=== PATIENT | male | born 1985 | race American Indian/Alaskan Native ===

== ENCOUNTER 2016-12-08 22:12 | Emergency (ER) | payer SELFPAY ==
[2016-12-09] MEDS ORDERED: PERCOCET 5/325 PO ONE (04:00)
--- NOTE | 2016-12-09 04:00 | Emergency Department Report ---
ED Rash HPI - HPI Chief Complaint: Skin Rash Stated Complaint: ABD PAIN/CYST Time Seen by Provider: 12/09/16 03:44 Duration: 3 Days Location: Back, Abdomen Suspected Cause: Unknown Rash Symptoms: Yes Itching, No Facial Swelling, No Tongue/Oral Swelling, No Breathing Difficulties, No Choking Sensation, No Wheezing/Dyspnea, No Peeling, No Blistering, No Fever, No Lightheaded, No Malaise, No Myalgias Severity: mild (3 out of 10) Other History: Patient here reports that he has skin rash to his left abdomen and left back area. Started 3 days ago. Denies any contact with anyone with similar rash. He reports that pain is 3 out of 10 in its burning but also reports throbbing and that it itches. Denies any history of similar rash. Denies any autoimmune disorder. Denies any fever or chills. Denies any respiratory symptoms. Tetanus vaccine is up-to-date. ED Review of Systems ROS: Stated complaint: ABD PAIN/CYST Other details as noted in HPI Comment: All other systems reviewed and negative Constitutional: denies: chills, fever Respiratory: no symptoms reported Cardiovascular: denies: chest pain, palpitations, edema, syncope Gastrointestinal: denies: nausea, vomiting Musculoskeletal: denies: back pain, arthralgia Skin: rash (painful rash), pruritus Neurological: denies: headache ED Past Medical Hx - Past Medical History Previous Medical History?: No - Surgical History Past Surgical History?: Yes Additional Surgical History: cyst removed from under arm 2015 - Family History Family history: no significant - Social History Smoking Status: Current Every Day Smoker Substance Use Type: Alcohol, Marijuana - Medications Home Medications: Home Medications Medication Instructions Recorded Confirmed Last Taken Type Acetaminophen/Codeine [Tylenol 1 tab PO Q6H PRN #12 tab 12/09/16 Unknown Rx /Codeine # 3 tab] Valacyclovir HCl [Valtrex] 1,000 mg PO TID #30 tablet 12/09/16 Unknown Rx Rash Exam - Exam General: Vital signs noted. No distress. Alert and acting appropriately. This is a 31-year-old male well-nourished well-developed in no acute distress. HEENT: No Periorbital Edema, No Conjuctival Injection, No Chemosis, No Perioral Edema, No Tongue Edema, No Uvular Edema, No Compromised Airway, No Drooling Lungs: Yes Good Air Exchange, No Wheezes, No Ronchi, No Stridor, No Cough, No Labored Respirations, No Retractions, No Use of Accessory Muscles, No Other Abnormal Lung Sounds Heart: Yes Regular, No Murmur Skin: Yes Tenderness (vesicular rash located to left abdomen, left side and left lateral mid back area. Tender to palpate.), Yes Erythema (grouped vesicles ), No Other (grouped vesicles sparsely scattered to left abdomen, left back and left side.) Other: Positive: Abdomen Normal, Neurologic Normal, Musculoskeletal Normal ED Course Vital Signs 12/09/16 00:13 Temperature 97.6 F Pulse Rate 60 Respiratory 18 Rate Blood Pressure 106/74 O2 Sat by Pulse 100 Oximetry - Reevaluation(s) Reevaluation #1: 12/09/16 04:25 Patient given Percocet 5/325 2 tablets emergency room for pain at rest site. ED Medical Decision Making - Medical Decision Making ED course: Discussed with patient that he had shingles. I discussed diagnosis and treatment plan with patient. Patient was curious to know how he got shingles. Patient had chickenpox as a child. He said he does not have any immune deficiency and his last HIV test was 6 months ago at which was negative. Patient given Percocet 5/325 mg 2 tablets emergency room for pain. Discharged home in stable condition with prescription for Valtrex and Tylenol 3. Critical care attestation.: If time is entered above; I have spent that time in minutes in the direct care of this critically ill patient, excluding procedure time. ED Disposition Clinical Impression: Painful skin lesion Shingles rash Qualifiers: Herpes zoster complications: without complications Qualified Code(s): B02.9 - Zoster without complications Disposition: DISCHARGED TO HOME OR SELFCARE Is pt being admited?: No Does the pt Need Aspirin: No Condition: Stable Instructions: Herpes Zoster (ED) Additional Instructions: Please practice good hygiene. Rashes contagious until lesions are dried up. Stay away from people, elderly and babies. Please follow-up with your primary care physician in 3-5 days. Prescriptions: Acetaminophen/Codeine [Tylenol /Codeine # 3 tab] 1 tab PO Q6H PRN #12 tab PRN Reason: Pain Valacyclovir HCl [Valtrex] 1,000 mg PO TID #30 tablet Referrals: [facility] [Outside] - 3-5 Days FRANNIE UMANZOR MD [Staff Physician] - 3-5 Days Forms: Accompanied Note, Work/School Release Form(ED)
[2016-12-09 04:42] VITALS: BP 116/73
== END 2016-12-09 04:43 | disposition home or self-care (01) ==
LOC: ED 22:12
DX: B02.9 Zoster without complications (principal); L98.8 Other specified disorders of the skin and subcutaneous tissue; F17.200 Nicotine dependence, unspecified, uncomplicated; F12.10 Cannabis abuse, uncomplicated
CPT/HCPCS: 99282